=== PATIENT | female | born 1970 | race American Indian/Alaskan Native ===

== ENCOUNTER 2016-09-04 22:29 | Inpatient (IN) | payer MEDICARE, OTHER ==
[2016-09-04 22:52] VITALS: RESP 20
[2016-09-04] MEDS ORDERED: Enoxaparin 150 mg Syringe SC STA (23:13)
--- NOTE | 2016-09-04 23:13 | C.PDOC ---
History Of Present Illness 45F c/o pain in her left lower leg since last night, worse with weight bearing. today noted some redness of the dean. +chills and subjective fever. hx venous insuff w surgery last december at [facility]. Time Seen by Provider: 09/04/16 22:59 Chief Complaint (Nursing): Bite Past Medical History Vital Signs: Last Vital Signs Temp 98.2 F 09/07/16 15:00 Pulse 91 H 09/07/16 15:00 Resp 20 09/07/16 15:00 BP 132/82 09/07/16 15:00 Pulse Ox 96 09/07/16 15:00 - Medical History PMH: Asthma, Bronchitis, HTN Family History: States: Other (nc) - Social History Hx Tobacco Use: No Hx Alcohol Use: No Hx Substance Use: No - Immunization History Hx Tetanus Toxoid Vaccination: No Hx Influenza Vaccination: Yes Hx Pneumococcal Vaccination: No Review Of Systems Except As Marked, All Systems Reviewed And Found Negative. Constitutional: Positive for: Fever, Chills, Malaise Cardiovascular: Negative for: Chest Pain Respiratory: Negative for: Cough, Shortness of Breath Gastrointestinal: Negative for: Nausea, Vomiting, Abdominal Pain Musculoskeletal: Positive for: Leg Pain Neurological: Negative for: Weakness, Numbness Physical Exam - Physical Exam Appears: Non-toxic, No Acute Distress Skin: Warm, Dry Head: Atraumatic Eye(s): bilateral: PERRL Oral Mucosa: Moist Neck: Normal ROM Cardiovascular: Rhythm Regular Respiratory: No Decreased Breath Sounds, No Accessory Muscle Use Gastrointestinal/Abdominal: Soft, No Tenderness Extremity: Tenderness (left lower leg and calf. scattered erythema over left lower dean), No Swelling Pulses: Left Dorsalis Pedis: Normal, Right Dorsalis Pedis: Normal Neurological/Psych: Oriented x3, Normal Motor, Normal Sensation, Other (no focla deficits) ED Course And Treatment - Laboratory Results Result Diagrams: 09/07/16 10:25 09/07/16 10:25 O2 Sat by Pulse Oximetry: 96 Disposition - Disposition Disposition: HOSPITALIZED Disposition Time: 00:19 Condition: STABLE - Clinical Impression Clinical Impression: Pain of lower extremity
[2016-09-04] MEDS ORDERED: Enoxaparin 40 mg Syringe ONE (23:32)
[2016-09-04] MEDS ORDERED: Enoxaparin 80 mg Syringe ONE (23:32)
[2016-09-04 23:37] LABS: BASO % 0.4 % (0.0-2.0); EOS # 0.1 K/uL (0.0-0.7); EOS % 0.8 % (0.0-4.0); HEMATOCRIT 37.3 % (34.0-47.0); LYMPH # 1.3 K/uL (1.0-4.3); LYMPH % 13.6 % (20.0-40.0); MEAN CORPUSCULAR HEMOGLOBIN 29.1 pg (27.0-31.0); MEAN CORPUSCULAR HGB CONC 33.5 g/dL (33.0-37.0); MEAN PLATELET VOLUME 9.2 fL (7.2-11.7); MONO # 0.7 K/uL (0.0-0.8); MONO % 7.8 % (0.0-10.0); RED CELL DISTRIBUTION WIDTH 14.2 % (11.5-14.5); WHITE BLOOD COUNT 9.4 K/uL (4.8-10.8)
[2016-09-04 23:44] LABS: CHLORIDE 96 mmol/L (98-107)
[2016-09-04 23:45] LABS: SODIUM 140 mmol/L (132-148)
[2016-09-04 23:47] LABS: AST/SGOT 35 U/L (14-36); BILIRUBIN,TOTAL 0.8 mg/dL (0.2-1.3); CARBON DIOXIDE 27 mmol/L (22-30); GFR AFRICAN-AMERICAN > 60; TOTAL PROTEIN 9.1 g/dL (6.3-8.3)
[2016-09-04 23:48] LABS: ALKALINE PHOSPHATASE 69 U/L (38-126); ALT/SGPT 38 U/L (9-52); BLOOD UREA NITROGEN 9 mg/dL (7-17); CALCIUM 9.6 mg/dl (8.6-10.4); GLUCOSE,RANDOM 108 mg/dL (65-105)
[2016-09-04 23:50] LABS: INR 1.2
[2016-09-05] MEDS: Oxycodone/Acetaminophen 5/325 mg Tab PO PRN ×3 (04:51→20:38)
--- NOTE | 2016-09-05 10:26 | CP.PCM.PN ---
Subjective - Date & Time of Evaluation Date of Evaluation: 09/05/16 Time of Evaluation: 08:30 - Subjective Subjective: PGY2 Medicine Note - Dr. Fine's service: Patient seen and examined at bedside this AM. Patient reports history of asthma , HTN and venous insufficiency. Patient has had anterior b/l leg laser treatment for her venous insufficiency and is scheduled to have the same procedure for her posterior legs in one week. Patient says 2 days ago she had the worst headache of her life associated with photophobia that improved mildly with Tylenol for 2 days. Patient denies associated vision changes. Pain was all over her head. Patient says she then got a fever and chills for 2 days. Saturday, she realized her left ankle was swollen and it was extremely painful and hot. Patient says her daughter has been staying with her for a few days and her daughter has bed bugs. Patient says a bed bug fell out of her own shoe when she got into the hospital yesterday. Patient feels she may have been bitten by a bed bug recently which started the pain in her leg. Patient also reports body aches that feel like muscle spasms all over her body. Objective - Vital Signs/Intake and Output Vital Signs (last 24 hours): Temp Pulse Resp BP Pulse Ox 98.2 F 106 H 20 145/80 96 09/05/16 07:40 09/05/16 07:40 09/05/16 07:40 09/05/16 07:40 09/05/16 07:40 Intake and Output: 09/05/16 09/05/16 06:59 18:59 Intake Total 240 Balance 240 - Medications Medications: Current Medications Enoxaparin Sodium (Lovenox) 120 mg SC Q12 [facility] Gabapentin (Neurontin) 100 mg PO TID [facility] Clindamycin Phosphate 600 mg/ (Dextrose) 54 mls @ 100 mls/hr IVPB Q6H [facility] Oxycodone/Acetaminophen (Percocet 5/325 Mg Tab) 1 tab PO Q4 PRN PRN Reason: Pain, moderate (4-7) Stop: 09/08/16 00:21 Last Admin: 09/05/16 04:51 Dose: 1 tab Pneumococcal Polyvalent Vaccine (Pneumovax 23 Vaccine) 0.5 ml IM .ONCE ONE Stop: 09/07/16 10:01 - Labs Labs: PT 13.5 SECONDS (9.7-12.2) H 09/04/16 23:34 INR 1.2 09/04/16 23:34 APTT 31 SECONDS (21-34) 09/04/16 23:34 - Constitutional Appears: Non-toxic, No Acute Distress - Head Exam Head Exam: NORMAL INSPECTION - Eye Exam Eye Exam: EOMI - ENT Exam ENT Exam: Mucous Membranes Moist - Respiratory Exam Respiratory Exam: Clear to Ausculation Bilateral, NORMAL BREATHING PATTERN. absent: Rales, Rhonchi, Wheezes - Cardiovascular Exam Cardiovascular Exam: REGULAR RHYTHM, +S1, +S2. absent: Gallop, Rubs, Murmur - GI/Abdominal Exam GI & Abdominal Exam: Soft, Normal Bowel Sounds. absent: Firm, Guarding, Tenderness - Extremities Exam Extremities Exam: Pedal Edema Additional comments: b/l pedal edema. left leg warm to touch and red. left ankle darker in color. bite teofilo on dorsal aspect of left foot. - Neurological Exam Neurological Exam: Alert, Oriented x3 - Psychiatric Exam Psychiatric exam: Normal Affect, Normal Mood - Skin Skin Exam: Normal Color, Warm Assessment and Plan - Assessment and Plan (Free Text) Assessment: 1. Left leg cellulitis Afebrile WBC 9.4 Clindamycin 600mg IVPB Q6H Monitor 2. Possible DVT F/U venous dopplers Lovenox 120mg SC Q12H 3. History of venous insufficiency F/U outpatient 4. Bodyaches Gabapentin 100mg PO TID F/U CPK and HgbA1C 5. History of HTN controlled without meds currently Monitor Patient takes triamterene- HCTZ at home. Patient does not know dose and has been out of meds for a few days 6. Asthma Ventolin PRN 7. Prophylaxis Protonix 40mg PO daily Lovenox 120mg SC Q12H
[2016-09-05] MEDS: Enoxaparin 120 mg Syringe SC SCH ×2 (10:27→22:21)
[2016-09-05] MEDS ORDERED: Albuterol HFA 90 mcg/actuation (8 g) INH PRN (10:29)
--- NOTE | 2016-09-05 13:45 | VASCLAB ---
PROCEDURE: Left Lower Extremity Venous Duplex Exam. HISTORY: leg pain PRIORS: None. TECHNIQUE: Left common femoral, femoral, popliteal and posterior tibial, peroneal and great saphenous veins were evaluated. Flow was assessed with color Doppler, compressibility, assessment of phasic flow and augmentation response. Report prepared by TASHA Villatoro, RVT FINDINGS: LEFT: 1. Common Femoral Vein: 1.1. Compressibility - Fully compressible: Thrombus - None : Flow - Phasic: Augmentation -Normal: Reflux - None. 2. Femoral Vein: 2.1. Compressibility - Fully compressible: Thrombus - None: Flow - Phasic: Augmentation -Normal: Reflux - None. 3. Popliteal Vein: 3.1. Compressibility - Fully compressible: Thrombus - None: Flow - Phasic: Augmentation -Normal: Reflux - None. 4. Posterior Tibial Vein: 4.1. Compressibility - : Thrombus - : Flow - : Augmentation -: Reflux - . 5. Peroneal Vein: 5.1. Compressibility - : Thrombus - : Flow - : Augmentation -: Reflux - . 6. Great Saphenous Vein: 6.1. Compressibility - Fully compressible: Thrombus - None: Flow - Phasic: Augmentation - Normal: Reflux - None. OTHER FINDINGS: Due to swelling in the calf, the left peroneal and posterior tibial vein are not visualized. IMPRESSION: No evidence of deep or superficial vein thrombosis of the left lower extremity with excellent venous flow. Normal valve function noted of the left side. Normal venous flow noted in the right common femoral vein.
[2016-09-06 07:44] LABS: CHLORIDE 97 mmol/L (98-107)
[2016-09-06 07:45] LABS: POTASSIUM 3.4 mmol/L (3.6-5.2); SODIUM 141 mmol/L (132-148)
[2016-09-06 07:47] LABS: ALB/GLOB RATIO 1.1 (1.0-2.1); ALKALINE PHOSPHATASE 68 U/L (38-126); ALT/SGPT 31 U/L (9-52); AST/SGOT 27 U/L (14-36); BILIRUBIN,TOTAL 0.4 mg/dL (0.2-1.3); BLOOD UREA NITROGEN 7 mg/dL (7-17); CARBON DIOXIDE 26 mmol/L (22-30); GFR AFRICAN-AMERICAN > 60; TOTAL PROTEIN 7.6 g/dL (6.3-8.3)
[2016-09-06 07:48] LABS: CALCIUM 8.8 mg/dl (8.6-10.4); GLUCOSE,RANDOM 100 mg/dL (65-105)
[2016-09-06 07:56] LABS: BASO % 0.6 % (0.0-2.0); EOS # 0.1 K/uL (0.0-0.7); EOS % 1.9 % (0.0-4.0); HEMATOCRIT 32.4 % (34.0-47.0); LYMPH # 2.2 K/uL (1.0-4.3); LYMPH % 37.1 % (20.0-40.0); MEAN CORPUSCULAR HEMOGLOBIN 29.1 pg (27.0-31.0); MEAN CORPUSCULAR HGB CONC 33.9 g/dL (33.0-37.0); MEAN PLATELET VOLUME 9.5 fL (7.2-11.7); MONO # 0.8 K/uL (0.0-0.8); RED CELL DISTRIBUTION WIDTH 14.4 % (11.5-14.5)
[2016-09-06] MEDS: Oxycodone/Acetaminophen 5/325 mg Tab PO PRN ×2 (09:09→18:52)
[2016-09-06] MEDS: Enoxaparin 120 mg Syringe SC SCH (09:10)
[2016-09-06] MEDS: Pantoprazole 40 mg EC Tab PO SCH (09:10)
--- NOTE | 2016-09-06 09:21 | HP ---
This is a 45-year-old female admitted to the hospital with chief complaint of cellulitis of lower ext remities with redness and swelling. The patient has a history of venous insufficiency laser loyd rgery in the past. with increasing pain, redness and swelling of left lower extremity, spasm. The patient came to the hospital, advised admission. PAST MEDICAL HISTORY: abdominal hysterectomy. The patient is a nonsmoker, nondrinker. PHYSICAL EXAMINATION: GENERAL: The patient is awake, alert, oriented. VITAL SIGNS: Temperature 98, pulse 90. HEENT: Within normal limits. NECK: Supple. CHEST: Symmetrical. HEART: Regular. ABDOMEN: Soft. EXTREMITIES: There is swelling, discoloration of the left leg. Scar from previous surgery. The patient suffers from cellulitis. The patient placed on bedrest, supportive care, antibiotics. Mich Deluca MD cc: [id number] TT: 09/05/2016 10:47:53 en
[2016-09-06] MEDS ORDERED: Potassium Chloride 20 mEq ER Tab PO ONE (10:00)
--- NOTE | 2016-09-06 14:57 | CP.PCM.PN ---
Subjective - Date & Time of Evaluation Date of Evaluation: 09/06/16 Time of Evaluation: 10:00 - Subjective Subjective: Dr. Fine service: patient seen and evaluated in room. She is complaing of left leg pain. She reports having 2 days of fever, chills, general malaise, and left ankle swelling and pain. She has a history of surgery on her left and right leg in the past. She has never had symptoms like this before. She currently denies fever, chills, chest pain, shortness of breath, nausea, vomiting, or diarrhea. Objective - Vital Signs/Intake and Output Vital Signs (last 24 hours): Temp Pulse Resp BP Pulse Ox 97.8 F 89 20 135/87 97 09/06/16 07:27 09/06/16 11:19 09/06/16 07:27 09/06/16 07:27 09/06/16 07:27 Intake and Output: 09/06/16 09/06/16 06:59 18:59 Intake Total 450 340 Balance 450 340 - Medications Medications: Current Medications Albuterol (Ventolin Hfa 90 Mcg/Actuation (8 G)) 1 puff INH RQ6 PRN PRN Reason: Shortness of Breath Enoxaparin Sodium (Lovenox) 120 mg SC Q12 [facility] Last Admin: 09/06/16 09:10 Dose: 120 mg Gabapentin (Neurontin) 100 mg PO TID [facility] Last Admin: 09/06/16 13:48 Dose: 100 mg Clindamycin Phosphate 600 mg/ (Dextrose) 54 mls @ 100 mls/hr IVPB Q6H [facility] Last Admin: 09/06/16 09:33 Dose: 100 mls/hr Oxycodone/Acetaminophen (Percocet 5/325 Mg Tab) 1 tab PO Q4 PRN PRN Reason: Pain, moderate (4-7) Stop: 09/08/16 00:21 Last Admin: 09/06/16 09:09 Dose: 1 tab Pantoprazole Sodium (Protonix Ec Tab) 40 mg PO DAILY [facility] Last Admin: 09/06/16 09:10 Dose: 40 mg Pneumococcal Polyvalent Vaccine (Pneumovax 23 Vaccine) 0.5 ml IM .ONCE ONE Stop: 09/07/16 10:01 - Labs Labs: 09/06/16 07:13 09/06/16 07:13 PT 13.5 SECONDS (9.7-12.2) H 09/04/16 23:34 INR 1.2 09/04/16 23:34 APTT 31 SECONDS (21-34) 09/04/16 23:34 - Constitutional Appears: Non-toxic, No Acute Distress - Eye Exam Eye Exam: Normal appearance - ENT Exam ENT Exam: Normal Exam - Respiratory Exam Respiratory Exam: Clear to Ausculation Bilateral. absent: Rales, Rhonchi, Wheezes - Cardiovascular Exam Cardiovascular Exam: REGULAR RHYTHM, RRR, +S1, +S2. absent: Gallop, Rubs - GI/Abdominal Exam GI & Abdominal Exam: Soft. absent: Tenderness - Extremities Exam Extremities Exam: Calf Tenderness Additional comments: swelling and redness, the borders were marked with a pen. - Neurological Exam Neurological Exam: Alert, Awake, Oriented x3 - Psychiatric Exam Psychiatric exam: Normal Affect, Normal Mood Assessment and Plan - Assessment and Plan (Free Text) Assessment: 1. Left leg cellulitis 09/06: celluitis marked, continue clincamycin, WBC going down. Afebrile WBC 9.4 Clindamycin 600mg IVPB Q6H Monitor 2. Possible DVT 09/06: Doppler negative for DVT, Lovenox on hold F/U venous dopplers Lovenox 120mg SC Q12H 3. History of venous insufficiency F/U outpatient 4. Bodyaches 09/06: CPK and Hbg A1C are unremarkable, continue Gabapentin Gabapentin 100mg PO TID F/U CPK and HgbA1C 5. History of HTN controlled without meds currently Monitor Patient takes triamterene- HCTZ at home. Patient does not know dose and has been out of meds for a few days 6. Asthma Ventolin PRN 7. Prophylaxis Protonix 40mg PO daily Lovenox 120mg SC Q12H
[2016-09-07] MEDS: Oxycodone/Acetaminophen 5/325 mg Tab PO PRN ×2 (04:31→16:40)
[2016-09-07] MEDS ORDERED: Pneumococcal 23-Valent Vaccine IM ONE (10:00)
[2016-09-07] MEDS: Pantoprazole 40 mg EC Tab PO SCH (10:05)
[2016-09-07 10:40] LABS: BASO % 0.5 % (0.0-2.0); EOS # 0.2 K/uL (0.0-0.7); EOS % 2.8 % (0.0-4.0); HEMATOCRIT 33.8 % (34.0-47.0); LYMPH # 1.6 K/uL (1.0-4.3); LYMPH % 25.5 % (20.0-40.0); MEAN CELL VOLUME 85.3 fL (81.0-99.0); MEAN CORPUSCULAR HEMOGLOBIN 28.3 pg (27.0-31.0); MEAN CORPUSCULAR HGB CONC 33.1 g/dL (33.0-37.0); MEAN PLATELET VOLUME 8.7 fL (7.2-11.7); MONO # 0.6 K/uL (0.0-0.8); MONO % 9.8 % (0.0-10.0); RED CELL DISTRIBUTION WIDTH 14.1 % (11.5-14.5); WHITE BLOOD COUNT 6.3 K/uL (4.8-10.8)
[2016-09-07 10:51] LABS: CHLORIDE 95 mmol/L (98-107); POTASSIUM 3.8 mmol/L (3.6-5.2); SODIUM 139 mmol/L (132-148)
[2016-09-07 10:53] LABS: ALKALINE PHOSPHATASE 66 U/L (38-126); ALT/SGPT 28 U/L (9-52); AST/SGOT 32 U/L (14-36); BILIRUBIN,TOTAL 0.3 mg/dL (0.2-1.3); BLOOD UREA NITROGEN 8 mg/dL (7-17); CARBON DIOXIDE 28 mmol/L (22-30); GFR AFRICAN-AMERICAN > 60; GLUCOSE,RANDOM 102 mg/dL (65-105); TOTAL PROTEIN 8.5 g/dL (6.3-8.3)
[2016-09-07 10:54] LABS: CALCIUM 9.2 mg/dl (8.6-10.4); MAGNESIUM 2.1 mg/dL (1.6-2.3)
--- NOTE | 2016-09-07 13:12 | CP.PCM.CON ---
Past Patient History - Past Medical History & Family History Past Medical History?: Yes - Past Social History Smoking Status: Never Smoked - CARDIAC Hx Cardiac Disorders: Yes Hx Hypertension: Yes - PULMONARY Hx Respiratory Disorders: Yes Hx Asthma: Yes Hx Bronchitis: Yes - NEUROLOGICAL Hx Neurological Disorder: No - HEENT Hx HEENT Problems: No - RENAL Hx Chronic Kidney Disease: No - ENDOCRINE/METABOLIC Hx Endocrine Disorders: No - HEMATOLOGICAL/ONCOLOGICAL Hx Blood Disorders: No - INTEGUMENTARY Hx Dermatological Problems: No - MUSCULOSKELETAL/RHEUMATOLOGICAL Hx Musculoskeletal Disorders: No Hx Falls: No Other/Comment: BLE LYMPHEDEMA - GASTROINTESTINAL Hx Gastrointestinal Disorders: No - GENITOURINARY/GYNECOLOGICAL Hx Genitourinary Disorders: No - PSYCHIATRIC Hx Psychophysiologic Disorder: No Hx Substance Use: No - SURGICAL HISTORY Hx Surgeries: Yes Hx Hysterectomy: Yes Other/Comment: lase sx of ela legs - ANESTHESIA Hx Anesthesia: Yes Hx Anesthesia Reactions: No Hx Malignant Hyperthermia: No Meds Allergies/Adverse Reactions: Allergies Allergy/AdvReac Type Severity Reaction Status Date / Time naproxen Allergy Verified 05/15/16 10:04 Penicillins Allergy RASH Verified 10/07/15 09:35 - Medications Medications: Current Medications Albuterol (Ventolin Hfa 90 Mcg/Actuation (8 G)) 1 puff INH RQ6 PRN PRN Reason: Shortness of Breath Enoxaparin Sodium (Lovenox) 120 mg SC Q12 [facility] Last Admin: 09/06/16 09:10 Dose: 120 mg Gabapentin (Neurontin) 100 mg PO TID [facility] Last Admin: 09/07/16 10:05 Dose: 100 mg Clindamycin Phosphate 600 mg/ (Dextrose) 54 mls @ 100 mls/hr IVPB Q6H [facility] Last Admin: 09/07/16 10:03 Dose: 100 mls/hr Vancomycin/Sodium Chloride (Vancocin) 200 mls @ 133 mls/hr IVPB Q12H [facility] Stop: 09/12/16 11:01 Oxycodone/Acetaminophen (Percocet 5/325 Mg Tab) 1 tab PO Q4 PRN PRN Reason: Pain, moderate (4-7) Stop: 09/08/16 00:21 Last Admin: 09/07/16 04:31 Dose: 1 tab Pantoprazole Sodium (Protonix Ec Tab) 40 mg PO DAILY [facility] Last Admin: 09/07/16 10:05 Dose: 40 mg Results - Vital Signs Recent Vital Signs: Last Vital Signs Temp 97.5 F L 09/07/16 08:00 Pulse 96 H 09/07/16 08:00 Resp 20 09/07/16 08:00 BP 113/75 09/07/16 08:00 Pulse Ox 96 09/07/16 08:00 - Labs Result Diagrams: 09/07/16 10:25 09/07/16 10:25 Labs: Laboratory Results - last 24 hr 09/07/16 10:25 WBC 6.3 RBC 3.97 Hgb 11.2 Hct 33.8 L MCV 85.3 MCH 28.3 MCHC 33.1 RDW 14.1 Plt Count 262 MPV 8.7 Neut % (Auto) 61.4 Lymph % (Auto) 25.5 [place] % (Auto) 9.8 Eos % (Auto) 2.8 Baso % (Auto) 0.5 Neut # 3.9 Lymph # 1.6 [place] # 0.6 Eos # 0.2 Baso # 0.0 Sodium 139 Potassium 3.8 Chloride 95 L Carbon Dioxide 28 Anion Gap 20 BUN 8 Creatinine 0.6 L Est GFR ( Amer) > 60 Est GFR (Non-Af Amer) > 60 Random Glucose 102 Calcium 9.2 Magnesium 2.1 Total Bilirubin 0.3 AST 32 ALT 28 Alkaline Phosphatase 66 Total Protein 8.5 H Albumin 4.3 Globulin 4.2 H Albumin/Globulin Ratio 1.0
[2016-09-07] MEDS: Vancomycin 1 gm/NS 200 ml 200 ML IVPB SCH ×2 (13:13→23:10)
--- NOTE | 2016-09-07 14:16 | CON ---
DATE: 09/06/2016 REASON FOR CONSULTATION: Swollen left leg with pain. HISTORY OF PRESENT ILLNESS: This is a 45-year-old morbidly obese black female, presented with the pa in and swelling in her left leg. She has history of chronic venous insufficiency and hypertension an d the pain in her leg got worse over the last week. She was seen in the Emergency Room, found to hav e cellulitis and admitted for IV antibiotic therapy. She is now seen in vascular surgical consultati on. PAST MEDICAL HISTORY: As noted above. FAMILY HISTORY AND REVIEW OF SYSTEMS: Noncontributory. PHYSICAL EXAMINATION: GENERAL: She is a moderately obese female, in no acute distress. EXTREMITIES: Pertinent physical findings includes 2+ edema of the left leg, 1+ edema of the right le g. Distal pulses are palpable. There is cellulitis noted from the mid-calf to the ankle. There are no areas of fluctuance or abscess formation. STUDIES: Her venous Doppler was reviewed, which revealed no evidence of DVT. My impression that she has cellulitis of the left leg, secondary to chronic venous insufficiency and morbid obesity. No evidence of abscess formation at this time, no evidence of deep venous thrombosis . RECOMMENDATIONS: She should continue with hospitalization with her leg elevated, on IV antibiotics u ntil the cellulitis resolves. Once she is discharged, she should continue on antibiotics by mouth, a lso wear a support stocking to control her edema. Once again, thank you for this referral. If you have any further questions, feel free to contact me. Brad Kaminski MD cc: [id number] TT: 09/07/2016 14:16:07 Confirmation # [id number] Dictation # [id number] en
--- NOTE | 2016-09-07 16:14 | CP.PCM.PN ---
Subjective - Date & Time of Evaluation Date of Evaluation: 09/07/16 Time of Evaluation: 10:00 - Subjective Subjective: Dr. Rody santana, Patient seen and examined in room. She is complaing of burning pain and tenderness of her left calf. She denies fever, chills, shortness of breath, palpitations, nausea, vomiting, or diarrhea. Objective - Vital Signs/Intake and Output Vital Signs (last 24 hours): Temp Pulse Resp BP Pulse Ox 97.5 F L 96 H 20 113/75 96 09/07/16 08:00 09/07/16 08:00 09/07/16 08:00 09/07/16 08:00 09/07/16 08:00 Intake and Output: 09/07/16 09/07/16 06:59 18:59 Intake Total 200 800 Balance 200 800 - Medications Medications: Current Medications Albuterol (Ventolin Hfa 90 Mcg/Actuation (8 G)) 1 puff INH RQ6 PRN PRN Reason: Shortness of Breath Enoxaparin Sodium (Lovenox) 120 mg SC Q12 [facility] Last Admin: 09/06/16 09:10 Dose: 120 mg Enoxaparin Sodium (Lovenox) 30 mg SC DAILY [facility] Gabapentin (Neurontin) 100 mg PO TID [facility] Last Admin: 09/07/16 13:23 Dose: 100 mg Clindamycin Phosphate 600 mg/ (Dextrose) 54 mls @ 100 mls/hr IVPB Q6H [facility] Last Admin: 09/07/16 10:03 Dose: 100 mls/hr Vancomycin/Sodium Chloride (Vancocin) 200 mls @ 133 mls/hr IVPB Q12H [facility] Stop: 09/12/16 11:01 Last Admin: 09/07/16 13:13 Dose: 133 mls/hr Oxycodone/Acetaminophen (Percocet 5/325 Mg Tab) 1 tab PO Q4 PRN PRN Reason: Pain, moderate (4-7) Stop: 09/08/16 00:21 Last Admin: 09/07/16 04:31 Dose: 1 tab Pantoprazole Sodium (Protonix Ec Tab) 40 mg PO DAILY [facility] Last Admin: 09/07/16 10:05 Dose: 40 mg - Labs Labs: 09/07/16 10:25 09/07/16 10:25 PT 13.5 SECONDS (9.7-12.2) H 09/04/16 23:34 INR 1.2 09/04/16 23:34 APTT 31 SECONDS (21-34) 09/04/16 23:34 - Constitutional Appears: Non-toxic, No Acute Distress - Head Exam Head Exam: NORMAL INSPECTION - Eye Exam Eye Exam: Normal appearance Pupil Exam: NORMAL ACCOMODATION - ENT Exam ENT Exam: Normal Exam - Respiratory Exam Respiratory Exam: Clear to Ausculation Bilateral. absent: Rales, Rhonchi, Wheezes - Cardiovascular Exam Cardiovascular Exam: REGULAR RHYTHM, RRR, +S1, +S2. absent: Gallop, Rubs - GI/Abdominal Exam GI & Abdominal Exam: Soft, Normal Bowel Sounds. absent: Tenderness - Extremities Exam Extremities Exam: Calf Tenderness Additional comments: left calf, hot, warm red, fluctuate. the cellulitis has decreased from the marking. - Back Exam Back Exam: NORMAL INSPECTION - Psychiatric Exam Psychiatric exam: Normal Affect, Normal Mood - Skin Skin Exam: Erythema, Warm Assessment and Plan - Assessment and Plan (Free Text) Assessment: Assessment: 1. Left leg cellulitis 09/07: Concern is for possible abscess, Dr. Kaminski consulted. Dr. Mays also consulted, Vancomycin 1gram Q12H added. Day 3 of IV clindamycin and day 1 of Vanc. 09/06: celluitis marked, continue clincamycin, WBC going down. Afebrile WBC 9.4 Clindamycin 600mg IVPB Q6H Monitor 2. Possible DVT 09/06: Doppler negative for DVT, Lovenox on hold F/U venous dopplers Lovenox 120mg SC Q12H 3. History of venous insufficiency F/U outpatient 4. Bodyaches 09/06: CPK and Hbg A1C are unremarkable, continue Gabapentin Gabapentin 100mg PO TID F/U CPK and HgbA1C 5. History of HTN controlled without meds currently Monitor Patient takes triamterene- HCTZ at home. Patient does not know dose and has been out of meds for a few days 6. Asthma Ventolin PRN 7. Prophylaxis Protonix 40mg PO daily Lovenox 30mg SC
[2016-09-07] MEDS: Enoxaparin 30 mg Syringe SC SCH (16:43)
--- NOTE | 2016-09-07 17:05 | CP.PCM.CON ---
History of Present Illness - History of Present Illness History of Present Illness: 45F c/o pain in her left lower leg since last night, worse with weight bearing. today noted some redness of the dean. +chills and subjective fever. hx venous insuff w surgery last december at [facility] in [facility]. HX MORBID OBESITY HTN ASTHMA OSTEOARTHRITIS? VENOUS STASIS ULCERS Review of Systems - Constitutional Constitutional: As Per HPI - EENT Eyes: absent: As Per HPI, Blind Spots, Blurred Vision, Change in Vision, Decreased Night Vision, Diplopia, Discharge, Dry Eye, Exophthalmos, Floaters, Irritation, Itchy Eyes, Loss of Peripheral Vision, Pain, Photophobia, Requires Corrective Lenses, Sees Flashes, Spots in Vision, Tunnel Vision, Other Visual Disturbances, Loss of Vision, Other Ears: absent: As Per HPI, Decreased Hearing, Ear Discharge, Ear Pain, Tinnitus, Abnormal Hearing, Disequilibrium, Dizziness, Other Nose/Mouth/Throat: absent: As Per HPI, Epistaxis, Nasal Congestion, Nasal Discharge, Nasal Obstruction, Nasal Trauma, Nose Pain, Post Nasal Drip, Sinus Pain, Sinus Pressure, Bleeding Gums, Change in Voice, Dental Pain, Dry Mouth, Dysphagia, Halitosis, Hoarsness, Lip Swelling, Mouth Lesions, Mouth Pain, Odynophagia, Sore Throat, Throat Swelling, Tongue Swelling, Facial Pain, Neck Pain, Neck Mass, Other - Breasts Breasts: absent: As Per HPI, Change in Shape, Mass, Pain, Nipple Discharge, Nipple Inversion, Skin Changes, Swelling, Other - Cardiovascular Cardiovascular: absent: As Per HPI, Acrocyanosis, Chest Pain, Chest Pain at Rest , Chest Pain with Activity, Claudication, Diaphoresis, Dyspnea, Dyspnea on Exertion, Edema, Irregular Heart Rhythm, Pain Radiating to Arm/Neck/Jaw, Leg Edema, Leg Ulcers, Lightheadedness, Orthopnea, Palpitations, Paroxysmal Nocturnal Dyspnea, Pedal Edema, Radiating Pain, Rapid Heart Rate, Slow Heart Rate, Syncope, Other - Respiratory Respiratory: absent: As Per HPI, Cough, Dyspnea, Hemoptysis, Dyspnea on Exertion , Wheezing, Snoring, Stridor, Pain on Inspiration, Chest Congestion, Excessive Mucous Production, Change in Mucous Color, Pain with Coughing, Other - Gastrointestinal Gastrointestinal: absent: As Per HPI, Abdominal Pain, Belching, Bloating, Change in Bowel Habits, Change in Stool Character, Coffee Ground Emesis, Constipation, Cramping, Diarrhea, Dyspepsia, Dysphagia, Early Satiety, Excessive Flatus, Fecal Incontinence, Heartburn, Hematemesis, Hematochezia, Loose Stools, Melena, Nausea, Odynophagia, Temesmus, Vomiting, Other - Reproductive: Female Reproductive:Female: absent: As Per HPI, Amenorrhea, Amenorrhea/ Control, Currently Menstual, Cycle <21 Days, Cycle >35 Days, Cycle Variable, Menses 1-7 Days, Menses >/= 8 Days, Menses Variable, Cycle > 4 Weeks Between, No Menses for 6 Months, Heavy Menses, Light Menses, Normal Menses, Spotting Between Cycles , S/P Hysterectomy, Menopausal, Post Menopausal, Premenarche, Abnormal Vaginal Bleeding, Dysmenorrhea, Dyspareunia, Genital Lesions, Genital Pruritis, Pelvic Pain, Prolapse Symptoms, Sexual Dysfunction, Vaginal Discharge, Vaginal Dryness , Vaginal Odor, Vaginal Pruritis, Other - Menstruation Menstruation: absent: As Per HPI, Amenorrhea, Amenorrhea/ Control, Currently Menstual, Cycle <21 Days, Cycle >35 Days, Cycle Variable, Menses 1-7 Days, Menses >/= 8 Days, Menses Variable, Cycle > 4 Weeks Between, No Menses for 6 Months, Heavy Menses, Light Menses, Normal Menses, Spotting Between Cycles , S/P Hysterectomy, Menopausal, Post Menopausal, Premenarche, Abnormal Vaginal Bleeding, Dysmenorrhea, Other - Musculoskeletal Musculoskeletal: As Per HPI - Integumentary Integumentary: As Per HPI - Neurological Neurological: absent: As Per HPI, Abnormal Gait, Abnormal Hearing, Abnormal Movements, Abnormal Speech, Behavioral Changes, Burning Sensations, Confusion, Convulsions, Disequilibrium, Dizziness, Numbness, Focal Weakness, Frequent Falls , Headaches, Lack of Coordination, Loss of Vision, Memory Loss, Paresthesias, Radicular Pain, Restless Legs, Sensory Deficit, Syncope, Tingling, Tremor, Vertigo, Weakness, Other Visual Disturbances, Other - Psychiatric Psychiatric: absent: As Per HPI, Abnormal Sleep Pattern, Anhedonia, Anxiety, Auditory Hallucinations, Behavioral Changes, Change in Appetite, Change in Libido, Confusion, Depression, Difficulty Concentrating, Hallucinations, Homicidal Ideation, Hopelessness, Irritability, Memory Loss, Mood Swings, Panic Attacks, Paranoia, Suicidal Ideation, Visual Hallucinations, Tactile Hallucinations, Other - Endocrine Endocrine: absent: As Per HPI, Change in Body Appearance, Change in Libido, Cold Intolorance, Deepening of Voice, Excessive Sweating, Fatigue, Flushing, Heat Intolorance, Increase in Ring/Shoe/Hat Size, Palpitations, Polydipsia, Polyphagia, Polyuria, Other - Hematologic/Lymphatic Hematologic: absent: As Per HPI, Easy Bleeding, Easy Bruising, Lymphadenopathy, Other Past Patient History - Past Medical History & Family History Past Medical History?: Yes - Past Social History Smoking Status: Never Smoked - CARDIAC Hx Cardiac Disorders: Yes Hx Hypertension: Yes - PULMONARY Hx Respiratory Disorders: Yes Hx Asthma: Yes Hx Bronchitis: Yes - NEUROLOGICAL Hx Neurological Disorder: No - HEENT Hx HEENT Problems: No - RENAL Hx Chronic Kidney Disease: No - ENDOCRINE/METABOLIC Hx Endocrine Disorders: No - HEMATOLOGICAL/ONCOLOGICAL Hx Blood Disorders: No - INTEGUMENTARY Hx Dermatological Problems: No - MUSCULOSKELETAL/RHEUMATOLOGICAL Hx Musculoskeletal Disorders: No Hx Falls: No Other/Comment: BLE LYMPHEDEMA - GASTROINTESTINAL Hx Gastrointestinal Disorders: No - GENITOURINARY/GYNECOLOGICAL Hx Genitourinary Disorders: No - PSYCHIATRIC Hx Psychophysiologic Disorder: No Hx Substance Use: No - SURGICAL HISTORY Hx Surgeries: Yes Hx Hysterectomy: Yes Other/Comment: lase sx of ela legs - ANESTHESIA Hx Anesthesia: Yes Hx Anesthesia Reactions: No Hx Malignant Hyperthermia: No Meds Allergies/Adverse Reactions: Allergies Allergy/AdvReac Type Severity Reaction Status Date / Time naproxen Allergy Verified 05/15/16 10:04 Penicillins Allergy RASH Verified 10/07/15 09:35 - Medications Medications: Current Medications Albuterol (Ventolin Hfa 90 Mcg/Actuation (8 G)) 1 puff INH RQ6 PRN PRN Reason: Shortness of Breath Enoxaparin Sodium (Lovenox) 120 mg SC Q12 [facility] Last Admin: 09/06/16 09:10 Dose: 120 mg Enoxaparin Sodium (Lovenox) 30 mg SC DAILY [facility] Last Admin: 09/07/16 16:43 Dose: 30 mg Gabapentin (Neurontin) 100 mg PO TID [facility] Last Admin: 09/07/16 13:23 Dose: 100 mg Clindamycin Phosphate 600 mg/ (Dextrose) 54 mls @ 100 mls/hr IVPB Q6H [facility] Last Admin: 09/07/16 16:44 Dose: 100 mls/hr Vancomycin/Sodium Chloride (Vancocin) 200 mls @ 133 mls/hr IVPB Q12H [facility] Stop: 09/12/16 11:01 Last Admin: 09/07/16 13:13 Dose: 133 mls/hr Oxycodone/Acetaminophen (Percocet 5/325 Mg Tab) 1 tab PO Q4 PRN PRN Reason: Pain, moderate (4-7) Stop: 09/08/16 00:21 Last Admin: 09/07/16 16:40 Dose: 1 tab Pantoprazole Sodium (Protonix Ec Tab) 40 mg PO DAILY [facility] Last Admin: 09/07/16 10:05 Dose: 40 mg Physical Exam - Constitutional Appears: Non-toxic, Chronically Ill - Head Exam Head Exam: NORMOCEPHALIC - Eye Exam Eye Exam: PERRL. absent: Scleral icterus - ENT Exam ENT Exam: Mucous Membranes Dry, Normal External Ear Exam - Neck Exam Neck exam: Negative for: Lymphadenopathy - Respiratory Exam Respiratory Exam: Decreased Breath Sounds, Clear to Auscultation Bilateral - Cardiovascular Exam Cardiovascular Exam: REGULAR RHYTHM, +S1, +S2 - GI/Abdominal Exam GI & Abdominal Exam: Diminished Bowel Sounds, Soft. absent: Tenderness - Rectal Exam Rectal Exam: Deferred - Exam Exam: NORMAL INSPECTION - Extremities Exam Extremities exam: Positive for: pedal edema, tenderness, pedal pulses present. Negative for: calf tenderness - Back Exam Back exam: absent: CVA tenderness (L), CVA tenderness (R) Results - Vital Signs Recent Vital Signs: Last Vital Signs Temp 97.5 F L 09/07/16 08:00 Pulse 96 H 09/07/16 08:00 Resp 20 09/07/16 08:00 BP 113/75 09/07/16 08:00 Pulse Ox 96 09/07/16 08:00 - Labs Result Diagrams: 09/07/16 10:25 09/07/16 10:25 Labs: Laboratory Results - last 24 hr 09/07/16 10:25 WBC 6.3 RBC 3.97 Hgb 11.2 Hct 33.8 L MCV 85.3 MCH 28.3 MCHC 33.1 RDW 14.1 Plt Count 262 MPV 8.7 Neut % (Auto) 61.4 Lymph % (Auto) 25.5 [place] % (Auto) 9.8 Eos % (Auto) 2.8 Baso % (Auto) 0.5 Neut # 3.9 Lymph # 1.6 [place] # 0.6 Eos # 0.2 Baso # 0.0 Sodium 139 Potassium 3.8 Chloride 95 L Carbon Dioxide 28 Anion Gap 20 BUN 8 Creatinine 0.6 L Est GFR ( Amer) > 60 Est GFR (Non-Af Amer) > 60 Random Glucose 102 Calcium 9.2 Magnesium 2.1 Total Bilirubin 0.3 AST 32 ALT 28 Alkaline Phosphatase 66 Total Protein 8.5 H Albumin 4.3 Globulin 4.2 H Albumin/Globulin Ratio 1.0 Assessment & Plan (1) Bronchitis Status: Acute (2) Chest congestion Status: Acute (3) Chest pain Status: Acute (4) Cough Status: Acute
[2016-09-07] MEDS ORDERED: Permethrin 5% Cream(60 gm) TOP ONE (17:08)
[2016-09-08 08:29] LABS: BASO # 0.1 K/uL (0.0-0.2); EOS # 0.2 K/uL (0.0-0.7); EOS % 3.1 % (0.0-4.0); LYMPH # 1.7 K/uL (1.0-4.3); LYMPH % 22.6 % (20.0-40.0); MEAN CELL VOLUME 86.9 fL (81.0-99.0); MEAN CORPUSCULAR HEMOGLOBIN 28.9 pg (27.0-31.0); MEAN CORPUSCULAR HGB CONC 33.2 g/dL (33.0-37.0); MONO # 0.6 K/uL (0.0-0.8); MONO % 7.8 % (0.0-10.0); RED CELL DISTRIBUTION WIDTH 14.3 % (11.5-14.5); WHITE BLOOD COUNT 7.6 K/uL (4.8-10.8)
[2016-09-08 09:02] LABS: CHLORIDE 96 mmol/L (98-107)
[2016-09-08 09:03] LABS: POTASSIUM 3.7 mmol/L (3.6-5.2); SODIUM 140 mmol/L (132-148)
[2016-09-08 09:05] LABS: BILIRUBIN,TOTAL 0.3 mg/dL (0.2-1.3); CARBON DIOXIDE 27 mmol/L (22-30); GFR AFRICAN-AMERICAN > 60
[2016-09-08 09:06] LABS: ALB/GLOB RATIO 1.1 (1.0-2.1); ALKALINE PHOSPHATASE 75 U/L (38-126); ALT/SGPT 34 U/L (9-52); AST/SGOT 43 U/L (14-36); BLOOD UREA NITROGEN 8 mg/dL (7-17); CALCIUM 8.6 mg/dl (8.6-10.4); GLUCOSE,RANDOM 100 mg/dL (65-105); MAGNESIUM 2.1 mg/dL (1.6-2.3); TOTAL PROTEIN 8.2 g/dL (6.3-8.3)
[2016-09-08] MEDS: Enoxaparin 30 mg Syringe SC SCH (09:29)
[2016-09-08] MEDS: Pantoprazole 40 mg EC Tab PO SCH (09:30)
[2016-09-08] MEDS: Vancomycin 1 gm/NS 200 ml 200 ML IVPB SCH (11:03)
[2016-09-09] MEDS: Vancomycin 1 gm/NS 200 ml 200 ML IVPB SCH ×2 (00:56→11:07)
[2016-09-09] MEDS ORDERED: DiphenhydrAMINE 50 mg/ml Inj IVP ONE (01:15)
[2016-09-09] MEDS: Enoxaparin 30 mg Syringe SC SCH (11:02)
[2016-09-09] MEDS: Pantoprazole 40 mg EC Tab PO SCH (11:04)
--- NOTE | 2016-09-09 16:46 | CP.PCM.PN ---
Subjective - Date & Time of Evaluation Date of Evaluation: 09/09/16 Time of Evaluation: 10:00 - Subjective Subjective: NO FEVER CELLULITIS LESS SWITCHED TO PO RX BLOOD C/S NEG Objective - Vital Signs/Intake and Output Vital Signs (last 24 hours): Temp Pulse Resp BP Pulse Ox 97.9 F 93 H 20 126/82 97 09/09/16 08:00 09/09/16 08:00 09/09/16 08:00 09/09/16 08:00 09/09/16 08:00 Intake and Output: 09/09/16 09/09/16 06:59 18:59 Intake Total 400 Balance 400 - Medications Medications: Current Medications Albuterol (Ventolin Hfa 90 Mcg/Actuation (8 G)) 1 puff INH RQ6 PRN PRN Reason: Shortness of Breath Clindamycin HCl (Cleocin) 300 mg PO Q6 [facility] Diphenhydramine HCl (Benadryl) 50 mg PO Q8 PRN PRN Reason: Rash Last Admin: 09/08/16 11:03 Dose: 50 mg Enoxaparin Sodium (Lovenox) 120 mg SC Q12 [facility] Last Admin: 09/06/16 09:10 Dose: 120 mg Enoxaparin Sodium (Lovenox) 30 mg SC DAILY [facility] Last Admin: 09/09/16 11:02 Dose: 30 mg Gabapentin (Neurontin) 100 mg PO TID [facility] Last Admin: 09/09/16 14:30 Dose: 100 mg Pantoprazole Sodium (Protonix Ec Tab) 40 mg PO DAILY [facility] Last Admin: 09/09/16 11:04 Dose: 40 mg - Labs Labs: 09/08/16 08:20 09/08/16 08:20 PT 13.5 SECONDS (9.7-12.2) H 09/04/16 23:34 INR 1.2 09/04/16 23:34 APTT 31 SECONDS (21-34) 09/04/16 23:34 - Constitutional Appears: Non-toxic, Chronically Ill - Head Exam Head Exam: NORMOCEPHALIC - Eye Exam Eye Exam: PERRL. absent: Scleral icterus - ENT Exam ENT Exam: Mucous Membranes Dry - Neck Exam Neck Exam: absent: Lymphadenopathy - Respiratory Exam Respiratory Exam: Decreased Breath Sounds - Cardiovascular Exam Cardiovascular Exam: REGULAR RHYTHM, +S1, +S2 - GI/Abdominal Exam GI & Abdominal Exam: Distended, Soft. absent: Tenderness - Rectal Exam Rectal Exam: Deferred - Exam Exam: NORMAL INSPECTION - Extremities Exam Extremities Exam: absent: Pedal Edema - Back Exam Back Exam: absent: CVA tenderness (L), CVA tenderness (R) - Neurological Exam Neurological Exam: Alert, Awake, Oriented x3 Assessment and Plan (1) Bronchitis Status: Acute (2) Chest congestion Status: Acute (3) Chest pain Status: Acute (4) Cough Status: Acute
[2016-09-10 09:12] VITALS: BP 128/84; PULSE 107; TEMP 98; O2SAT 97
--- NOTE | 2016-09-10 09:23 | PN ---
DATE: 09/09/2016 The patient's legs improving. Good response to antibiotic. Continue . Mich Deluca MD cc: [id number] TT: 09/09/2016 12:03:11 Confirmation # [id number] Dictation # [id number]
[2016-09-10] MEDS: Pantoprazole 40 mg EC Tab PO SCH (10:28)
[2016-09-10] MEDS: Enoxaparin 30 mg Syringe SC SCH (10:29)
== END 2016-09-10 11:00 | disposition home or self-care (01) | DRG 603 ==
LOC: C.ER 22:29 → C.3T 09-05 00:19 → OBSVTOIN 09-05 00:20 → C.3T 09-08 22:37
PROVIDERS: ADMIT Internal Medicine Pulmonary Disease; ATTEND Internal Medicine Pulmonary Disease
DX: L03.116 Cellulitis of left lower limb (principal); Z68.42 Body mass index [BMI] 45.0-49.9, adult; I10 Essential (primary) hypertension; E66.01 Morbid (severe) obesity due to excess calories; I87.2 Venous insufficiency (chronic) (peripheral); J40 Bronchitis, not specified as acute or chronic; J45.909 Unspecified asthma, uncomplicated; I83.12 Varicose veins of left lower extremity with inflammation